=== PATIENT | male | born 2005 | race Caucasian/White ===

== ENCOUNTER 2023-03-18 15:23 | Emergency (ER) | payer SELFPAY ==
[2023-03-18 15:48] VITALS: BP 123/67; PULSE 50; RESP 16; TEMP 37; O2SAT 97; BMI 23.0
--- NOTE | 2023-03-18 17:05 | EXP.UTC ---
Discharge Plan Referrals Follow up/Referrals: Provider,Referral, [Primary Care Provider] - See instructions Activity Restrictions/Add. Instructions Additional Instructions/Restrictions: Suture instructions: ?You have required stitches today. Please read the following instructions so you know how to care for them: ?1. Keep wound area dry for the first 24 hours. 2?? May clean gently with mild soap and water, after 48 hours to prevent crusting over suture knots. 3. You may shower if your provider gives permission but do not take a bath until the skin is healed.. 4. Never leave a wet dressing or Band-Aid on your stitches as this allows bacteria to reach the area and may cause infection. Band-aids can cause the wound to sweat and not recommended to wear for long periods of time Watch for signs of infection: ? Increasing redness, tenderness or warmth around the suture site ? Unusual swelling around the site ? Appearance of pus around each suture or any red streaks ? Fever If you develop any of the above signs or symptoms of infection, Follow up with Family Physician immediately 5. Suture removal in _8-10___days 6. Return to [facility] or follow up with family doctor for removal. This can be done by any medical provider dur?ing regular hours on Friday through Friday, by appointment. Clinical Impressions Clinical Impression: Laceration Instructions Patient Instructions: DI for Laceration Repair, DI for Laceration Repair -- Simple Discharge ED Provider: Sha Sanabria [facility] [place] HPI General Stated complaint: WC 03/18@1400 lac to R Arm Mode of Arrival: Ambulatory Source of Information: Patient and Parent(s) Limitations: No Limitations Time Seen by Provider: 03/18/23 17:06 Description of Symptoms (Recalled from Triage Doc. by RN): pt presents with a approximately half inch lac to the lateral aspect of his R wrist. 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 lac is not bleeding at this time. pt c/o wrist pain. HEENT Symptoms (Recalled from RN notes): No Resp Symptoms (Recalled from RN notes): No Skin Symptoms (Recalled from RN notes): Yes MS Symptoms (Recalled from RN notes): No Functional Status (Recalled from RN notes): wnl History of Present Illness Provider Complaint: Patient state that prior to arrival patient was using a jukebox routeman and it slipped causing laceration to the outside of his right wrist area States that they immediately applied pressure and wrapped it and brought him in Related Data Allergies Allergy/AdvReac Type Severity Reaction Status Date / Time No Known Allergies Allergy Verified 03/18/23 16:15 Worker's Comp Is this a Worker's Comp case?: No [facility] Disclaimer: The information contained in this section may have been updated after the patient was seen, as this information can be updated by other users. Social History Smoking Status: Unknown if ever smoked alcohol intake: never current occupational status: employed Travel in the last 8 weeks: None ROS Obtained: Yes All systems reviewed & no additional complaints except as documented and Yes Systems reviewed as appropriate & no additional complaints except as documented Constitutional Constitutional: Reports system reviewed and no additional complaints, except as documented and Reports as per HPI ENT Ears, Nose, Mouth, and Throat: Reports system reviewed and no additional complaints, except as documented and Reports as per HPI Cardiovascular Cardiovascular: Reports system reviewed and no additional complaints, except as documented and Reports as per HPI Respiratory Respiratory: Reports system reviewed and no additional complaints, except as documented and Reports as per HPI Gastrointestinal Gastrointestingal: Reports system reviewed and no additional complaints, except as documented and as per HPI Musculoskeletal Musculoskeletal: Reports system reviewed and no additional complaints, except as documented and Rep
[2023-03-18 17:10] VITALS: BP 123/67; PULSE 50; RESP 16; TEMP 37
== END 2023-03-18 17:15 | disposition home or self-care (01) ==
PROVIDERS: Emergency Provider Nurse Practitioner
DX: S61.511A Laceration without foreign body of right wrist, initial encounter (principal); W26.8XXA Contact with other sharp object(s), not elsewhere classified, initial encounter
CPT/HCPCS: 12001; 99212; 99214; G0463